=== PATIENT | male | born 1975 | race Caucasian/White ===

== ENCOUNTER 2017-09-08 20:48 | Emergency (ER) | payer BC ==
[2017-09-08] MEDS ORDERED: Ketorolac INJ* 60 MG/2 ML VIAL IM ONE (21:45)
[2017-09-08] MEDS ORDERED: traMADol TAB* 50 MG PO ONE (21:46)
--- NOTE | 2017-09-08 21:49 | RAD ---
Indication: LEFT forearm pain post fall. Comparison: No relevant prior exams available on the [facility] [place]. Technique: AP and lateral views LEFT radius and ulna. Report: Normal articular alignment. No cortical disruption or suspicious trabecular irregularity to suggest fracture. Soft tissue swelling over the dorsal aspect of the proximal forearm. IMPRESSION: No evidence for forearm fracture. If there is specific clinical concern for fracture at the elbow dedicated radiographs centered at the elbow would be suggested for further assessment.
[2017-09-08 22:09] VITALS: BP 110/67
--- NOTE | 2017-09-08 22:13 | ED ---
Upper Extremity Pain - HPI Summary HPI Summary: Patient is an otherwise healthy 42-year-old male presenting to the ED with left arm pain after falling down a flight of stairs after passing out. Partner at bedside states he was difficult to arouse for several minutes. 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 He endorses pain to the lateral side of the proximal forearm with obvious swelling and ecchymosis to the area. Also endorses pain to the left dorsum of the wrist with limited mobility on flexion and extension. Denies any pain or limitations with flexion and extension of the ipsilateral wrist. He is otherwise healthy and takes no medications. He did not take anti- inflammatories [employer]WORK [employer]. Pain is approximately a 5 out of 10. - History of Current Complaint Chief Complaint: EDExtremityUpper Stated Complaint: LEFT ARM INJURY Time Seen by Provider: 09/08/17 21:22 Hx Obtained From: Patient Mechanism Of Injury: Direct Blow Onset/Duration: Started Hours Ago Timing: Constant Severity Initially: Mild Severity Currently: Mild Pain Location: Arm, Elbow, Forearm, Wrist Character: Aching Aggravating Factor(s): Movement Alleviating Factor(s): Rest, Ice Associated Signs & Symptoms: Positive: Swelling, Bruising Related History: Dominant Hand Right - Risk Factors Non-Orthopedic Risk Factor: Negative DVT Risk Factors: Negative Septic Arthritis Risk Factor: Negative Compartment Syndrome Risk Factors: Pain - Allergies/Home Medications Allergies/Adverse Reactions: Allergies Allergy/AdvReac Type Severity Reaction Status Date / Time No Known Allergies Allergy Verified 09/08/17 20:57 PMH/Surg Hx/FS Hx/Imm Hx Previously Healthy: Yes - Immunization History Hx Pertussis Vaccination: No Immunizations Up to Date: Unable to Obtain/Confirm Infectious Disease History: No Infectious Disease History: Denies: Traveled Outside the [place] in Last 30 Days - Social History Occupation: Employed Full-time Lives: With Family Alcohol Use: Occasionally Hx Substance Use: No Substance Use Type: Reports: None Hx Tobacco Use: No Smoking Status (MU): Never Smoked Tobacco Review of Systems Constitutional: Negative Negative: Fever, Chills, Skin Diaphoresis Eyes: Negative Cardiovascular: Negative Negative: Shortness Of Breath, Cough Negative: Abdominal Pain, Vomiting, Diarrhea Genitourinary: Negative Positive: no symptoms reported, see HPI Positive: Arthralgia, Myalgia Positive: Bruising, Other - swelling to the proximal lateral forearm Neurological: Negative All Other Systems Reviewed And Are Negative: Yes Physical Exam Triage Information Reviewed: Yes Vital Signs On Initial Exam: Initial Vitals Temp Pulse Resp BP Pulse Ox 97.2 F 61 20 94/70 98 09/08/17 20:55 09/08/17 20:55 09/08/17 20:55 09/08/17 20:55 09/08/17 20:55 Vital Signs Reviewed: Yes Appearance: Positive: Well-Appearing, Well-Nourished Skin: Positive: Warm, Skin Color Reflects Adequate Perfusion, Other - Swelling and ecchymosis to the proximal lateral forearm Head/Face: Positive: Normal Head/Face Inspection Neck: Positive: Supple, No Lymphadenopathy Respiratory/Lung Sounds: Positive: Clear to Auscultation, Breath Sounds Present Cardiovascular: Positive: RRR, Pulses are Symmetrical in both Upper and Lower Extremities Musculoskeletal: Positive: Limited @ - Flexion and extension of the left wrist, Pain @ Neurological: Positive: Speech Normal Psychiatric: Positive: Normal, Affect/Mood Appropriate Diagnostics - Vital Signs Vital Signs Temp Pulse Resp BP Pulse Ox 09/08/17 20:55 97.2 F 61 20 94/70 98 - Laboratory Lab Statement: Any lab studies that have been ordered have been reviewed, and results considered in the medical decision making process. Course/Dx - Course Course Of Treatment: During the course of treatment, the patient is evaluated for left wrist and proximal forearm pain. He states he passed out going down a flight of stairs when he fell. Denies any known head injury or other pain or areas of concern. I have discussed the possible etiologies of a syncopal episode, believing his syncopal episode was from no PO intake today and with some alcohol. I have offered an EKG and patient declines. He states he is feeling at his baseline other than his forearm and wrist pain. Flexion and extension of the left wrist is limited with mobility. There is an obvious contusion to the left lateral proximal side of the forearm. X-rays obtained which shows:IMPRESSION: No evidence for forearm fracture. If there is specific clinical concern for. fracture at the elbow dedicated radiographs centered at the elbow would be suggested for. further assessment. Discussed results with patient. I have advised he have an anti-inflammatory at this time as the wrist joint is most likely swollen and sprained. Toradol 60 mg IM given. Tramadol 50mg 4 tabs given from ED to control pain at home. He is okay with this plan and discharged. Alexx wrapped for comfort and sling given. - Diagnoses Differential Diagnosis/HQI/PQRI: Positive: Contusion, Fracture (Open), Fracture (Closed) Provider Diagnoses: Contusion, Left wrist sprain Discharge - Sign-Out/Discharge Documenting (check all that apply): Discharge - Discharge Plan Condition: Stable Disposition: HOME Patient Education Materials: Contusion in Adults (ED), Wrist Sprain (ED) Referrals: Balbir Mary MD [Medical Doctor] - Koko Jules MD [Primary Care Provider] - Additional Instructions: Ibuprofen 600mg three times daily for pain and inflammation ice to the area Keep the area wrapped x 2 days Follow up with [facility] if symptoms worsen - Billing Disposition and Condition Condition: STABLE Disposition: HOME
== END 2017-09-08 22:08 | disposition home or self-care (01) ==
LOC: ED 20:48
DX: S60.212A Contusion of left wrist, initial encounter (principal); S63.502A Unspecified sprain of left wrist, initial encounter; W10.9XXA Fall (on) (from) unspecified stairs and steps, initial encounter; Y92.9 Unspecified place or not applicable
CPT/HCPCS: 96372; 99281; J1885

== ENCOUNTER 2018-07-03 07:29 | Emergency (ER) | payer BC ==
--- NOTE | 2018-07-03 07:39 | UC ---
Throat Pain/Nasal [place] HPI - HPI Summary HPI Summary: Pt presents to reporting sore throat starting last evening. Pt states woke at 3am with pain. Pt feels his glands are swollen and discomfort right ear. minimal nasal congestion. no fever, but feels warm. no analgesia taken. Painful swallowing. Pt states saw "white spots" and is concerned about strep. 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 No abdominal pain, n/v. No rashes. No myalgias, arthragia Pt's medications reviewed this visit - History of Current Complaint Stated Complaint: ST Hx Obtained From: Patient Onset/Duration: Gradual Onset, Lasting Hours Severity: Mild Pain Intensity: 4 Pain Scale Used: 0-10 Numeric - Allergies/Home Medications Allergies/Adverse Reactions: Allergies Allergy/AdvReac Type Severity Reaction Status Date / Time No Known Allergies Allergy Verified 07/03/18 07:36 PMH/Surg Hx/FS Hx/Imm Hx Previously Healthy: Yes - Surgical History Surgery Procedure, Year, and Place: hernia repair,vasectomy - Family History Known Family History: Positive: Non-Contributory - Social History Occupation: Employed Full-time Lives: With Family Alcohol Use: Occasionally Substance Use Type: None Smoking Status (MU): Never Smoked Tobacco Review of Systems All Other Systems Reviewed And Are Negative: Yes Constitutional: Positive: Fatigue ENT: Positive: Sore Throat, Ear Ache, Sinus Congestion - mild Respiratory: Positive: Negative Is Patient Immunocompromised?: No Physical Exam - Summary Physical Exam Summary: Vital Signs Reviewed: Yes A+Ox3, no distress Eyes: Conjunctiva Clear, GEOVANI. EOM intact and full ENT: Hearing grossly normal right TM mild fluid, no erythema, no retraction turbinates mild inflammed + PND + mild erythema with b/l exudate uvula midline Neck: Positive: Supple, mild submandibular LA Respiratory: Positive: No respiratory distress, No accessory muscle use + CTA throughout no w/r Cardiovascular: RRR nl s1, s2 no m/r CBT <2 sec abd soft + BS nt/nd no guarding, no distension Musculoskeletal Exam: LIRIANO x 4 without difficulty Strength Intact, ROM Intact Neurological: Positive: Alert, + sensation throughout Psychological: Positive: Normal Response To Family Skin: Positive: no rash, no ecchymosis Triage Information Reviewed: Yes Throat Pain/Nasal Course/Dx - Course Course Of Treatment: Pt with 12 hours sore throat, mild right ear pain, and mild nasal congestion. No fever, vomiting, mylagia + sick contact. no analgesia taken. No difficulty with airway, painful swallowing. VSS. Pt with exudate and erythema b/l tonsils, oropharynx uvula midline. rapid strep neg. Will Rx flonase. APAP (Pt states doesn't tolerate Motrin). hydrate. gargle/ spit. return precautions. Will Rx Flonase. Will Rx Amox - recommend start if sx progress, increased right ear pain. Pt comfortable and in agreement with plan - Differential Dx/Diagnosis Provider Diagnosis: Pharyngitis, Acute serous otitis media, right ear Discharge - Sign-Out/Discharge Documenting (check all that apply): Patient Departure All imaging exams completed and their final reports reviewed: No Studies - Discharge Plan Condition: Stable Disposition: HOME Prescriptions: Amoxicillin PO (*) [Amoxicillin 875 MG (*)] 875 mg PO BID #20 tab Fluticasone NASAL SPRAY 50MCG* [Flonase NASAL SPRAY 50MCG*] 2 spray BOTH NARES DAILY #1 btl Patient Education Materials: Pharyngitis (ED), Serous Otitis Media (ED) Referrals: Remy Kinsey MD [Primary Care Provider] - Additional Instructions: - Okay to take tylenol every 6 hours for pain. Take with food. Do NOT take for more than 4-5 days - Okay to gargle and spit warm salt water every 4 hours as needed for pain - Stay well hydrated - frequent sips of cold fluids will be soothing to your throat (popsicles, jello, ice cream, ice water). Avoid excess caffeine until your symptoms have resolved. - Throat infections are spread by oral secretions - do not share eating or drinking utensils until you symptoms are resolved. Clean items that may get your secretions such as cell phones, ipads, computer mouse, television remotes. Once you start to feel better, change your toothbrush and your pillowcase. - Use nasal spray as prescribed - Humidify the air in the room where you sleep - boil water, run a hot steam shower, vaporizer, cups of water by heat register - Okay to take over the counter cough and decongestant medication - If you have ongoing sore throat, fever, increased ear pain or sinus pressure - okay to start antibiotic as prescribed on 07/05/2018 - Contact your doctor to arrange a follow-up appointment as needed - Billing Disposition and Condition Condition: STABLE Disposition: Home
[2018-07-03 07:42] VITALS: BP 140/96
[2018-07-03] MEDS ORDERED: Acetaminophen TAB* 325 MG PO ONE (07:57)
== END 2018-07-03 08:05 | disposition home or self-care (01) ==
LOC: UCCORT 07:29
DX: J02.9 Acute pharyngitis, unspecified (principal); H65.91 Unspecified nonsuppurative otitis media, right ear; R09.81 Nasal congestion
CPT/HCPCS: 87651; 99212; A9270-GY; G0463

== ENCOUNTER 2019-06-19 07:23 | Emergency (ER) | payer BC ==
--- NOTE | 2019-06-19 07:31 | UC ---
Throat Pain/Nasal [place] HPI - HPI Summary HPI Summary: Patient presents to urgent care reporting a sore throat that started yesterday. Patient states he has had sick contacts but does not know if any of them were diagnosed with strep. Patient states he's had strep in the past several similar. Patient denies any fevers or chills. Mildly painful swallowing. No congestion or ear pain. No cough. No fever, chills, rash. Patient did not take anything for analgesia today. Patient able to eat and drink without any difficulty. Patient's medications and centered in the EMR by the triage nurse reviewed this visit. - History of Current Complaint Stated Complaint: SORE THROAT Hx Obtained From: Patient - Allergies/Home Medications Allergies/Adverse Reactions: Allergies Allergy/AdvReac Type Severity Reaction Status Date / Time No Known Allergies Allergy Verified 06/19/19 07:34 Home Medications: Home Medications Multivitamin [Multivitamins] 1 cap PO 06/19/19 [History] PMH/Surg Hx/FS Hx/Imm Hx Previously Healthy: Yes - Surgical History Surgical History: None Surgery Procedure, Year, and Place: hernia repair,vasectomy - Family History Known Family History: Positive: Non-Contributory - Social History Occupation: Employed Full-time Lives: Alone Alcohol Use: Occasionally Substance Use Type: None Smoking Status (MU): Never Smoked Tobacco Review of Systems All Other Systems Reviewed And Are Negative: Yes ENT: Positive: Sore Throat Is Patient Immunocompromised?: No Physical Exam - Summary Physical Exam Summary: Vital Signs Reviewed: Yes A+Ox3, no distress Eyes: Conjunctiva Clear, GEOVANI. 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 Patient has had sick contacts but does not know if any of them have had strep. Patient does not have any other complaints and states his throat feels like when he's had strep in the past. On exam vital signs show an elevated blood pressure. Otherwise no concerning. Patient does have diffuse erythema across his oropharynx. Patient does have exudative tonsils with left right. Tonsils however are symmetric in size and uvula is midline. Patient does have submandibular lymphadenopathy. Strep was negative. Patient was given Tylenol skin no analgesics point. A long discussion with patient regarding treatment options. Patient does have exudative tonsils, erythema, and lymphadenopathy so antibiotics is not unreasonable even in his rapid strep was negative. Patient does not have any other complaints to suggest for other urinary symptoms. Recommend symptomatic supportive care for the first 24 hours. The patient's symptoms persisted for 24 hours we'll start amoxicillin. I will send this to his pharmacy. Recommend humidified air. Discussed secretion precaution. Motrin and Tylenol for pain. Currently reports a water. Patient states understanding and agreement with plan. I did also have a long discussion with patient regarding his elevated blood pressure. It was rechecked twice and hypotensive times here. Looking at patient's trend he was 140/June. Recommend patient decreased his diet stay hydrated Copaxone alcohol. Recommend patient contact his PCP for follow-up appointment and recheck. Patient's does not have any end organ complaints or symptoms today so will hold any medication recommendations at this time. Patient states understanding and agreement with plan. Patient was given a printout of his current blood pressure the last several urgent care visits. Return precautions discussed. - Differential Dx/Diagnosis Provider Diagnosis: Exudative pharyngitis, Elevated blood pressure reading Discharge ED - Sign-Out/Discharge Documenting (check all that apply): Patient Departure All imaging exams completed and their final reports reviewed: No Studies - Discharge Plan Condition: Stable Disposition: HOME Prescriptions: Amoxicillin PO (*) [Amoxicillin 500 MG CAP*] 500 mg PO Q12H #20 cap Patient Education Materials: Pharyngitis (ED) Referrals: Remy Kinsey MD [Primary Care Provider] - Additional Instructions: - Okay to alternate ibuprofen (Advil, Motrin) 600mg and Tylenol 1000mg every 3 hours for pain. Take with food. Do NOT take for more than 4-5 days - Okay to gargle and spit warm salt water every 4 hours as needed for pain - Stay well hydrated - frequent sips of cold fluids will be soothing to your throat (popsicles, jello, ice cream, ice water). Avoid excess caffeine until your symptoms have resolved. -Throat infections are spread by oral secretions - do not share eating or drinking utensils until you symptoms are resolved. Clean items that may get your secretions such as cell phones, ipads, computer mouse, television remotes. Once you start to feel better, change your toothbrush and your pillowcase. - humidify the air in the room where you sleep - boil water, run a hot steam shower, vaporizer, cups of water by heat register, run a humidifier or vaporizer - Okay to take over the counter cough and decongestant medication - If your symptoms persist, you develop fevers okay to start antibiotics after 24 hours - Contact your doctor to arrange a follow-up appointment as needed As discussed - your blood pressure was elevated at today's visit - it is recommended you contact your primary care provider to schedule a follow-up appointment for a recheck. Avoid excess salt in your diet and stay well hydrated - Billing Disposition and Condition Condition: STABLE Disposition: Home
[2019-06-19 07:48] VITALS: BP 140/106
[2019-06-19] MEDS: Acetaminophen TAB* 325 MG PO ONE (07:52)
== END 2019-06-19 08:00 | disposition home or self-care (01) ==
LOC: UCCORT 07:23
DX: J02.9 Acute pharyngitis, unspecified (principal); R03.0 Elevated blood-pressure reading, without diagnosis of hypertension
CPT/HCPCS: 87651; 99212; A9270-GY; G0463